=== PATIENT | female | born 1965 | race Two or more races ===

== ENCOUNTER → 2016-09-26 11:04 | Emergency (ER) | payer OTHER ==
[~2016-09-26] VITALS: Ht 144.8 cm; Wt 44.5 kg
[2016-09-26 12:27] VITALS: BP 133/60
== END | disposition home or self-care (01) ==
LOC: ER 11:04
DX: G62.9 Polyneuropathy, unspecified (principal); E16.2 Hypoglycemia, unspecified; Z88.2 Allergy status to sulfonamides; Z88.1 Allergy status to other antibiotic agents
CPT/HCPCS: 82962